=== PATIENT | male | born 1970 ===

== ENCOUNTER 2024-01-07 07:59 | Outpatient (AMB) | payer OTHER, SELFPAY ==
--- NOTE | 2024-01-07 08:00 | MHC.OFFVIS ---
Vital Signs 01/07/24 08:03 Height 5 ft 7 in Weight 185 lb BMI 29.0 Intake Visit Reasons: Left knee pain and swelling Intake Note: Daron is a 53 year old male who presents with complaints of progressively worsening left knee pain and swelling. The patient states that he aggravated his knee approximately 1 week ago. He twisted his knee and had acute onset of pain. He has been using crutches because of his pain. He has had cortisone injections given into his left knee in the past which gave him fairly good relief. He is not able to take anti-inflammatory medicines because he is on Coumadin. He has tried Tylenol which gives him minimal relief. Allergies banana Allergy (Severe, Verified 01/07/24 08:02) Anaphylaxis shellfish derived Allergy (Severe, Verified 01/07/24 08:02) Anaphylaxis Medication List - Last Reconciled 01/07/24 by Willian Kitchen MD warfarin mg PO BID [facility] Social History (Updated 01/07/24 @ 08:03 by SHAHEED Guillory) Alcohol intake: current Patient Tobacco Use Status: Never used Tobacco Current occupational status: employed Physical Exam Vital Signs: BMI result Body Mass Index 29.0 Const Other: Well-nourished well-developed very friendly male awake alert and oriented x3 in no acute distress Extrem Other: Left knee examination shows a large effusion, palpable crepitus with range of motion, pain with range of motion, no instability Office Procedures Joint Injection/Aspiration Joint Injection/Aspiration Primary Site: left knee Prep: site was prepped using aseptic technique Injected: 40 mg of, DepoMedrol and 1% plain lidocaine Procedure: The patient tolerated the procedure well Coding 75424 - Large joint Procedure code (CPT) selection complete Assessment & Plan Assessment & Plan (1) Arthritis of left knee: Code(s): M17.12 - Unilateral primary osteoarthritis, left knee Category: Medical Plan Mr. Hollins presents with left knee pain and swelling due to degenerative joint disease. I had a lengthy discussion patient regarding the treatment options. The risks and benefits of a left knee cortisone injection were discussed at length with the patient. The patient wished to proceed. Prior to the injection I aspirated 40 cc's of clear fluid from his left knee. He tolerated the injection well. He will continue with his activity modifications. I did give him a prescription for tramadol to help with his pain. He will follow up with me on an as-needed basis should his symptoms not plateau at an unacceptable level over the next few months. I spent 22 minutes in reviewing the patient's records and imaging studies, seeing the patient and documenting in the medical record. Orders: Orders AMB Joint Injection/Aspiration Today M17.12 - Unilateral primary osteoarthritis, left knee Medications: New tramadol 50 mg PO Q12H PRN 60 tabs 0RF pain Coding Level of Care Code Est Pt Level 3 (83010) Diagnoses Arthritis of left knee M17.12 CPT Codes Coding - 66884 Large joint: 28429 - Large joint ([id number])
[2024-01-07 08:03] VITALS: BMI 29.0
== END 2024-01-07 08:16 | disposition home or self-care (01) ==
LOC: HO.HOS 07:59
PROVIDERS: Visit Provider Orthopaedic Surgery
DX: M17.12 Unilateral primary osteoarthritis, left knee (principal)
CPT/HCPCS: 20610; 99213

== ENCOUNTER → 2024-01-07 07:59 | Outpatient (BNVA) | payer OTHER, SELFPAY | PROVIDERS: Visit Provider Orthopaedic Surgery | DX: M17.12 Unilateral primary osteoarthritis, left knee (principal) | CPT/HCPCS: 20610; 99212; J1010; J2003 ==